=== PATIENT | female | born 1965 | race Caucasian/White ===

== ENCOUNTER 2024-01-06 10:04 | Day surgery (SDC) | payer OTHER ==
[~2024-01-06] VITALS: Ht 160 cm; Wt 71.8 kg
[~2024-01-06 10:04] MED LIST: Amitriptyline H10 MG; CLIMARA1 EACH; Dexamethasone Sod Phos 10 MG/ML 1ML VIAL ONE; EPINEPhrine HCl 1 MG/ML 1ML Amp ONE; FentaNYL Citrate 50 MCG/ML 2 ML Injection ONE; Lactated Ringer's 1,000 ML IV ONE; Lidocaine HCl 4% 5 ML SDA ONE; Ondansetron HCl 2 MG / ML 2ML Vial ONE; PROG100; Rocuronium Bromide 10 MG/ML 5ML Injection IV ONE; Ropivacaine 0.5% HCL/PF 5 MG/ML 30ML Vial ONE; Sugammadex Sodium 200 MG/2ML SDV (100 MG/ML) ONE; propofoL 20 ML IV ONE
[2024-01-06] MEDS ORDERED: Midazolam HCl 1MG / ML 2ML Vial ONE (10:05)
[2024-01-06] MEDS ORDERED: Midazolam HCL 1 MG/ML 5MLVIAL ONE (10:05)
[2024-01-06] MEDS ORDERED: CeFAZolin Sodium 2,000 MG VIAL ONE (10:11)
[2024-01-06] MEDS ORDERED: ESTRADIOL0.5 MG (10:36)
[2024-01-06] MEDS ORDERED: Lactated Ringer's 1,000 ML IV ONE ×2 (11:00→12:51)
[2024-01-06] MEDS ORDERED: propofoL 20 ML IV ONE (11:18)
[2024-01-06] MEDS ORDERED: Scopolamine Hydrobromide Patch ONE (11:24)
--- NOTE | 2024-01-06 11:41 | NUR ---
01/06/24 1141 Aleisha Saul TIMEOUT COMPLETED PRIOR TO PRE-OP BLOCK 1123 BLOCK COMPLETED 1134
[2024-01-06] MEDS ORDERED: EPINEPhrine HCl 1 MG/ML 1ML Amp XX ONE (11:57)
--- NOTE | 2024-01-06 12:03 | NUR ---
01/06/24 1202 Lissette Ferguson ROPIVACAINE 0.5% 30 ML MIXED & VERIFIED W EPI 0.15ML TO MAKE ROPIVACAINE 0.5% 1:200,000 [facility] RAMIRE[facility].
--- NOTE | 2024-01-06 13:29 | NUR ---
01/06/24 1329 Rianna Huynh SATS DOWN TO 89% ON RA. PT. ENC. TO TAKE DEEP BREATHS, SATS BACK UP TO 94%. PT. DOZES & SATS GO DOWN, O2 PLACED AT 2L/NC UNTIL PT. WAKES UP A LITTLE MORE. PT. CAN FOLLOW COMMANDS TO TAKE DEEP BREATHS BUT DOESN'T RESPOND WHEN ASKED IF HER NAUSEA WAS ANY BETTER OR IF SHE HAS ANY PAIN.
[2024-01-06] MEDS ORDERED: FentaNYL Citrate 50 MCG/ML 2 ML Injection ONE (14:47)
--- NOTE | 2024-01-06 14:52 | NUR ---
01/06/24 1452 Gonzalo Ledbetter VSS, PT MORE ALERT, C/O 03/06 WILL GIVE 50MCG FENTANYL IV PER ORDERS.
[2024-01-06] MEDS ORDERED: Ondansetron HCl 2 MG / ML 2ML Vial ONE (14:58)
[2024-01-06] MEDS ORDERED: OxyCODONE HCL 5 MG TAB ONE ×2 (15:18→16:20)
[2024-01-06 16:32] VITALS: BP 118/81
== END 2024-01-06 16:50 | disposition home or self-care (01) ==
LOC: ORSCSDS 10:04
PROVIDERS: Podiatrist Foot & Ankle Surgery
PROC: 0QBM0ZZ Excision of Left Tarsal, Open Approach (ICD-10-PCS; principal; 2024-01-06 11:15)
PROC: 0LSP0ZZ Reposition Left Lower Leg Tendon, Open Approach (ICD-10-PCS; principal; 2024-01-06 11:15)
DX: M76.62 Achilles tendinitis, left leg (principal); M24.572 Contracture, left ankle
CPT/HCPCS: A9270; C1713; J0171; J0690; J1100; J2001; J2250; J2405; J2704; J2795; J3010; J7120